=== PATIENT | male | born 1960 | race Two or more races ===

== ENCOUNTER 2024-10-17 16:45 | Emergency (ER) | payer MEDICARE, MEDICAID ==
[~2024-10-17] VITALS: Ht 162.6 cm; Wt 72.7 kg
--- NOTE | 2024-10-17 16:59 | ED.PDOC ---
History of Present Illness HPI Comments 64-year-old male presents with a chief complaint of SOB and back pain. Patients states that patient had an "attack" where he "could not breathe and panics". Patient states that the anxiety comes from his back pain and has been like this since he ran out of his [place] medication from his pain management d octor. Patient was mildly histrionic at time of evaluation. Patient was hypertensive, tachycardic and tachypneic at arrival. Chief Complaint: Shortness of Breath Time Seen by MD: 16:55 Reviewed Notes: Nurses Notes, Medications, Allergies Allergies: Coded Allergies: NO KNOWN ALLERGIES (Unverified , 10/17/24) Information Source: Patient, Spouse Mode of Arrival: Wheelchair Severity: Moderate Timing: Days Duration: Since onset Prehospital treatment: None Past Medical History PAST MEDICAL HISTORY: Anxiety, Denies Past Medical History (Other): Patient has a history of significant chronic back pain issues Surgical History: Denies all surgeries Family History Family History: Reviewed,noncontributory to illness Social History Smoker: Non-Smoker Alcohol: Denies ETOH Use Drugs: Denies Drug Use Lives In: Home Constitutional: denies: chills, diaphoresis, fatigue, fever, malaise, sweats, weakness, others EENTM: denies: blurred vision, double vision, ear bleeding, ear discharge, ear drainage, ear pain, ear ringing, eye pain, eye redness, hearing loss, mouth pain, mouth swelling, nasal discharge, nose bleeding, nose congestion, nose pain, photophobia, tearing, throat pain, throat swelling, voice changes, others Respiratory: reports: shortness of breath; denies: cough, hemoptysis, orthopnea, SOB at rest, SOB with excertion, stridor, wheezing, others Cardiovascular: denies: chest pain, dizzy spells, diaphoresis, Dyspnea on exertion, edema, irregular heart beat, left arm pain, lightheadedness, palpitations, PND, syncope, others Gastrointestinal: denies: abdomen distended, abdominal pain, blood streaked bowels, constipated, diarrhea, dysphagia, difficulty swallowing, hematemesis, melena, nausea, poor appetite, poor fluid intake, rectal bleeding, rectal pain, vomiting, others Genitourinary: denies: burning, dysuria, flank pain, frequency, hematuria, incontinence, penile discharge, penile sore, pain, testicle pain, testicle swelling, urgency, others Neurological: denies: dizziness, fainting, headache, left sided numbness, left sided weakness, numbness, paresthesia, pre-existing deficit, right sided numbness, right sided weakness, seizure, speech problems, tingling, tremors, weakness, others Musculoskeletal: reports: back pain; denies: gout, joint pain, joint swelling, muscle pain, muscle stiffness, neck pain, others Integumetry: denies: bruises, change in color, change in hair/nails, dryness, laceration, lesions, lumps, rash, wounds, others Allergic/Immunocompromised: denies: Difficulty Healing, Frequent Infections, Hives, Itching, others Hematologic/Lymphatic: denies: anemia, blood clots, easy bleeding, easy bruising, swollen glands, others Endocrine: denies: excessive hunger, excessive sweating, excessive thirst, excessive urination, flushing, intolerance to cold, intolerance to heat, unexplained weight gain, unexplained weight loss, others Psychiatric: denies: anxiety, bipolar disorder, depression, hopeless, panic disorder, schizophrenia, sleepless, suicidal, others All Other Systems: Reviewed and Negative Physical Exam General Appearance: Moderate Distress (Distress due to moves significant back pain concerns. Patient was mildly histrionic and crying at time of evaluation.), Normal HEENT: Normal ENT Inspection, Pharynx Normal, TMs Normal Neck: Full Range of Motion, Non-Tender, Normal, Normal Inspection Respiratory: Chest Non-Tender, Lungs Clear, No Accessory Muscle Use, No Respiratory Distress, Normal Breath Sounds, Other (Unremarkable auscultation bilateral lung rueda.) Cardiovascular: No Edema, No JVD, No Murmur, No Gallop, Normal Peripheral Pulses, Regular Rate/Rhythm Breast Exam: Deferred Gastrointestinal: No Organomegaly, Non Tender, No Pulsatile Mass, Normal Bowel Sounds, Soft Genitalia: Deferred Pelvic: Deferred Rectal: Deferred Extremities: No calf tenderness, No pedal edema Musculoskeletal : Location: Bilateral Extremity Location: Back (Diffuse tenderness to palpation throughout upper and lower back concerns. Hypertonicity noted throughout. Patient denies any saddle paresthesia.) Apperance: Normal Neurologic: Alert Cerebellar Function: NOT DONE Reflexes: NOT DONE Skin: Dry, Normal Color, Warm Lymphatic: No Adenopathy Was a procedure done? Was a procedure done?: No Differential Dx Considerations may include: COPD, emphysema, pneumonia, asthma, anxiety, chronic back pain, acute coronary syndrome X-Ray, Labs, Meds, VS Vital Signs Date Time Temp Pulse Resp B/P (MAP) Pulse Ox O2 Delivery O2 Flow Rate FiO2 10/17/24 18:26 98 15 120/79 10/17/24 18:26 99.2 98 15 120/79 (93) 97 99.2 10/17/24 17:55 98.8 100 22 133/94 (107) 95 98.8 10/17/24 17:55 100 20 100 Room Air 10/17/24 17:54 100 22 133/94 10/17/24 16:46 98.3 101 22 156/96 99 98.3 Lab Test 10/17/24 18:43 10/17/24 17:21 Range/Units Troponin I High Sensitivity < 3 L < 3 L </=54 ng/L White Blood Count 6.3 4.4-10.8 10^3/uL Red Blood Count 4.71 4.5-5.90 10^6/uL Hemoglobin 13.4 L 13.5-17.5 g/dL Hematocrit 39.2 L 41.0-53.0 % Mean Corpuscular Volume 83.3 80.0-100.0 fL Mean Corpuscular Hemoglobin 28.4 28.0-32.0 pg Mean Corpuscular Hemoglobin Concent 34.1 32.0-36.0 g/dL Red Cell Distribution Width 14.0 11.8-14.3 % Platelet Count 302 140-450 10^3/uL Mean Platelet Volume 8.0 6.9-10.8 fL Neutrophils (%) (Auto) 54.2 37.0-80.0 % Lymphocytes (%) (Auto) 37.6 10.0-50.0 % Monocytes (%) (Auto) 4.3 0.0-12.0 % Eosinophils (%) (Auto) 3.0 0.0-7.0 % Basophils (%) (Auto) 0.9 0.0-2.0 % Neutrophils # (Auto) 3.4 1.6-8.6 10 ^3/uL Lymphocytes # (Auto) 2.4 0.4-5.4 10 ^3/uL Monocytes # (Auto) 0.3 0-1.3 10 ^3/uL Eosinophils # (Auto) 0.2 0-0.8 10 ^3/uL Basophils # (Auto) 0.1 0-0.2 10 ^3/uL Nucleated Red Blood Cells 0.2 % D-Dimer, Quantitative < 0.19 0.0-0.49 mg/L FEU Sodium Level 143 136-145 mmol/L Potassium Level 3.3 L 3.5-5.1 mmol/L Chloride Level 106 98-107 mmol/L Carbon Dioxide Level 26 20-31 mmol/L Anion Gap 11 5-15 Blood Urea Nitrogen 14 9-23 mg/dL Creatinine 0.79 0.700-1.30 mg/dL Glomerular Filtration Rate Calc 100 >90 mL/min BUN/Creatinine Ratio 17.7 10.0-20.0 Serum Glucose 136 H 74-106 mg/dL Calcium Level 8.8 8.7-10.4 mg/dL Current Medications Medications (Trade) Dose Ordered Sig/Tyrese Route Start Time Stop Time Status Last Admin Hydromorphone HCl (Dilaudid Injection) 1 mg ONCE ONCE IM 10/17/24 17:00 10/17/24 17:01 DC 10/17/24 17:54 X-Ray, Labs, Meds, VS Comment All studies performed in the ED were evaluated by me personally. Serum studies were unremarkable for any systemic concerns. As ice head was unremarkable for any intrapulmonary concerns or consolidation. Advised that there was no need to image with the back as we know what that culprit is. Advised patient that he will need to always maintain pain medication through his pain management doctor. Patient will see the doctor tomorrow and therefore, advised to make letha e he maintains that appointment. Time of 1ST Reevaluation: 20:46 Reevaluation 1ST: Improved Consultation: PCP, Other (Pain management) Patient Education/Counseling: Diagnosis, Treatment, Need For Follow Up Family Education/Counseling: Diagnosis, Treatment, No Family Present SEPSIS Sepsis Screen Date sepsis recognized/suspect: Oct 17, 2024 Time Sepsis recognized/suspect: 1648 Recent Procedure: No On Antibiotic Therapy: No Respiratory Rate >20: Yes Heart Rate >90: Yes Temp<36 C (96.8 F) or >38.3 C: No SBP <90 or MAP <65 mmHG: No New Acute Mental Status Change: No Is the patient on CPAP, BIPAP,: No Physician Orders Chest Portable (10/17/24 16:57) Electrocardigram (10/17/24 16:57) Troponin-I Hs (10/17/24 19:57) Vital Signs Date Time Temp Pulse Resp B/P (MAP) Pulse Ox O2 Delivery O2 Flow Rate FiO2 10/17/24 18:26 98 15 120/79 10/17/24 18:26 99.2 98 15 120/79 (93) 97 99.2 10/17/24 17:55 98.8 100 22 133/94 (107) 95 98.8 10/17/24 17:55 100 20 100 Room Air 10/17/24 17:54 100 22 133/94 10/17/24 16:46 98.3 101 22 156/96 99 98.3 Laboratory Tests Test 10/17/24 17:21 White Blood Count 6.3 10^3/uL (4.4-10.8) Medications Medications Dose Ordered Sig/Tyrese Route Start Time Stop Time Status Last Admin Dose Admin Hydromorphone HCl 1 mg ONCE ONCE IM 10/17/24 17:00 10/17/24 17:01 DC 10/17/24 17:54 Departure 1 Departure Time of Disposition: 20:47 Impression: Primary Impression: Chronic back pain Disposition: 01 HOME / SELF CARE / HOMELESS Condition: Stable Additional Instructions: Advised patient maintain follow up appointment with a pain management doctor tomorrow for continued medication management of his chronic back pain concerns. Discharged With: Self, Spouse Critical Care Note Critical Care Time?: No Stability Stability form required: No Heart Score Heart Score: Heart Score Response (Comments) Value History N/A 0 EKG N/A 0 Age N/A 0 Risk Factors N/A 0 Troponin N/A 0 Total 0 I personally scribed for SARATH TURK PAC ([email or web address]) on 10/17/24 at 16:59. Electronically submitted by Attila Mathis ([email or web address]). SARATH TURK PAC Oct 17, 2024 16:59
[2024-10-17 17:34] LABS: Hematocrit 39.2 % (41.0-53.0); Hemoglobin 13.4 g/dL (13.5-17.5); Mean Corpuscular Hemoglobin 28.4 pg (28.0-32.0); Mean Corpuscular Volume 83.3 fL (80.0-100.0); Nucleated Red Blood Cells % 0.2 %
--- NOTE | 2024-10-17 17:34 | DVH ---
CHEST RADIOGRAPH Indication: Chest pain Technique: Single frontal view of the chest was obtained Comparison: None FINDINGS: Lines and Tubes: None Lungs: No focal consolidation. Pleura: No effusion. No pneumothorax. Cardiomediastinal contours: Unremarkable Bones: No acute osseous abnormality. IMPRESSION: 1. No acute cardiopulmonary disease.
[2024-10-17 17:40] LABS: Chloride 106 mmol/L (98-107); Sodium 143 mmol/L (136-145)
[2024-10-17 17:41] LABS: Anion Gap 11 (5-15); Carbon Dioxide 26 mmol/L (20-31)
[2024-10-17 17:42] LABS: Calcium 8.8 mg/dL (8.7-10.4)
[2024-10-17 17:46] LABS: BUN/Creatinine Ratio 17.7 (10.0-20.0); Blood Urea Nitrogen 14 mg/dL (9-23)
[2024-10-17 17:51] LABS: Glucose 136 mg/dL (74-106); Potassium 3.3 mmol/L (3.5-5.1)
[2024-10-17] MEDS: HYDROmorphone HCL 2 MG/ML VL/or syr IM ONE (17:54)
[2024-10-17 21:08] VITALS: BP 121/80; PULSE 76; RESP 17; TEMP 97.9; O2SAT 94
== END 2024-10-17 21:19 | disposition home or self-care (01) ==
LOC: ER 16:51
DX: G89.29 Other chronic pain (principal); F41.9 Anxiety disorder, unspecified; Z87.898 Personal history of other specified conditions
CPT/HCPCS: 36415; 71045; 80048; 84484; 85025; 85379; 96372; 99284; J1171